=== PATIENT | female | born 1925 | race Caucasian/White ===

== ENCOUNTER 2016-04-06 15:42 | Outpatient (CLI) | payer MEDICARE, BC ==
[~2016-04-06 15:42] MED LIST: ALEVE LIQCAPS PO; ASPIR-LOW81 MG PO; ASPIRIN E.C. 8181 MG PO; ATARAX 25MG25 MG/TAB PO; ATIVAN 1MG T1 MG/TAB PO; ATIVAN0.5 MG PO; BIOTIN1 MG PO; BONIVA1 MG/ML MR; BRILINTA90 MG PO; CALCIUM 600600 MG PO; CALTRATE-600 W600 MG PO; CARDIZEM CD 18180 MG PO; CARDIZEM CD300 MG PO; CLARITIN 1010 MG/TAB PO; CLONAZEPAM; CLOPIDOGREL; CLOPIDOGREL PO; COENZYME Q-1010 MG PO; CYPROHEPTADINE H4 MG PO; DARVOCET A500 51 TAB PO; DETROL; DETROL LA4 PO; DETROL PO; DILTIAZEM180 MG PO; EFFEXOR XR37.5 MG/CA PO; EPIPEN 2-PAK1 MG/ML IM; ESCITALOPRAM PO; FERROUS SULFAT325 MG PO; FISH OIL CONC1000 MG PO; FLONASE NASAL S16 GM NS; FLONASEALLERGY NS; FOLIC ACID; GENTEAL 10 ML10 M1 OU; HCTZ 25MG TAB25 MG PO; HCTZ 25MG25 MG PO; HCTZ12.5TAB PO; HYDROXYZINE10 M1 PO; IMDUR 30MG30 MG/TAB PO; IMDUR 60MG60 MG/TAB PO; KLONOPIN 1MG1 MG PO; KLOR-CON M2020 MEQ PO; LASIX 20MG TABL20 MG PO; LEXAPRO 10MG10 MG PO; LIPITOR40 MG PO; LIVALO PO; LIVALO2 MG PO; MAG-CAPS85 MG; METHADONE HC5 MG/TAB PO; MIRALAX PA17 GM/Dose PO; MS CONTIN 115 MG/TAB PO; NIASPAN 500MG500 MG PO; NITROSTAT0.4 MG/TAB SL; NORCO 325 MG-51 TAB; NORCO 325 MG-51 TAB PO; NORCO 325 MG-7.1 TAB PO; PAMELOR 25MG25 MG PO; PEPCID 20MG TAB20 MG PO; PRAVASTATIN20 MG PO; PREDNISONE20 MG PO; PRESERVISION; PRESERVISION1 SGL PO; PRILOSEC 20MG20 MG PO; PROTONIX 40MG T40 MG PO; REQUIP0.25 MG PO; ROPINAROLE; SENOKOT15 MG/DOSE PO; SINGULAIR PO; SYNTHROID0.075 MG PO; SYNTHROID0.075 MG/T PO; SYNTHROID0.088 MG/T PO; VITAMIN C500 MG PO; ZOCOR40 MG PO; ZYRTEC 10MG10 MG PO; ZYRTEC ALLERGY10 MG PO; [UNRECOGNIZED DRUG - OTHER]; [UNRECOGNIZED DRUG - OTHER]; [UNRECOGNIZED DRUG - REMARK]
[2016-04-06 16:00] VITALS: BP 137/59; PULSE 73; TEMP 97.5
[2016-04-06] MEDS ORDERED: MAG-OX 400400 MG/TAB PO (16:13)
== END 2016-04-06 17:12 | disposition home or self-care (01) ==
LOC: EUO 15:42
DX: M81.0 Age-related osteoporosis without current pathological fracture (principal)
CPT/HCPCS: J3489

== ENCOUNTER 2016-08-19 14:46 | Emergency (ER) | payer MEDICARE, BC ==
[~2016-08-19] VITALS: Ht 154.9 cm; Wt 65.9 kg
[2016-08-19 14:46] VITALS: TEMP 97.1
[~2016-08-19 14:46] MED LIST changes: +MAG-OX 400400 MG/TAB PO
[2016-08-19 15:28] LABS: BASO % 0.5 % (0.0-2.0); EOS # 0.1 (0.0-0.7); EOS % 1.4 % (0-4.0); GRAN # 5.9 (1.4-6.5); GRAN % 66.8 % (42.2-75.2); LYMPH # 1.9 (1.2-3.4); LYMPH % 21.6 % (20.0-51.0); MEAN CELL VOLUME 75 fl (80.0-100.0); MEAN CORPUSCULAR HGB CONC 30 g/dl (33.0-37.0); MEAN PLATELET VOLUME 9.2 fl (7.4-10.4); MONO # 0.8 (0.1-0.6); MONO % 8.5 % (1.7-9.3); PLATELET COUNT 271 K/mm3 (130-400); RED BLOOD COUNT 4.23 M/mm3 (4.10-5.30); REDCELL DISTRIBUTION WIDTH-CV 23.8 % (11.5-14.5); WHITE BLOOD COUNT 8.8 K/mm3 (4.8-10.8)
[2016-08-19 15:29] LABS: HEMATOCRIT 31.9 % (37.0-47.0); HEMOGLOBIN 9.6 g/dl (12.5-16.0); MEAN CORPUSCULAR HEMOGLOBIN 23 pg (27.0-31.0)
[2016-08-19 15:42] LABS: PARTIAL THROMBOPLASTIN TIME 28.4 SECONDS (26.0-37.0)
[2016-08-19 15:44] LABS: ADJUSTED CALCIUM 8.8 mg/dL (8.4-10.2); ALBUMIN 3.9 gm/dL (3.5-5.0); BILIRUBIN,TOTAL 0.5 mg/dL (0.0-1.0); CALCIUM 8.7 mg/dL (8.4-10.2); CREATININE, serum 0.83 mg/dL (0.52-1.25); POTASSIUM 3.2 mmol/L (3.4-5.0); TOTAL PROTEIN 6.8 gm/dL (6.4-8.2)
[2016-08-19 16:24] LABS: PH 7 (5-8); SQUAMOUS EPITHELIAL None Seen /hpf; URINE APPEARANCE Clear; URINE BACTERIA None Seen /hpf; URINE BILIRUBIN Negative (NEGATIVE); URINE BLOOD Negative (NEGATIVE); URINE COLOR Yellow; URINE GLUCOSE Negative (NEGATIVE); URINE KETONE Negative (NEGATIVE); URINE RBC 0-2 /hpf; URINE UROBILINOGEN Negative (NEGATIVE); URINE WBC 0-2 /hpf
[2016-08-19 17:04] LABS: INR 1.2 (0.8-3.0); PROTHROMBIN TIME 13.6 SECONDS (9.7-12.8)
[2016-08-19 17:49] VITALS: BP 177/87; PULSE 82
== END 2016-08-19 17:52 | disposition short-term general hospital (02) ==
LOC: COL.ER 14:46
PROVIDERS: Emergency Medicine
DX: S72.301A Unspecified fracture of shaft of right femur, initial encounter for closed fracture (principal); S72.002A Fracture of unspecified part of neck of left femur, initial encounter for closed fracture; W19.XXXA Unspecified fall, initial encounter; Y92.129 Unspecified place in nursing home as the place of occurrence of the external cause; I25.10 Atherosclerotic heart disease of native coronary artery without angina pectoris; I10 Essential (primary) hypertension
CPT/HCPCS: J1170; J2270; J2405; J7030

== ENCOUNTER 2016-08-29 11:14 | Inpatient (IN) | payer MEDICARE, BC ==
[~2016-08-29] VITALS: Ht 160 cm; Wt 65.1 kg
[~2016-08-29 11:14] MED LIST changes: -ASPIRIN 81M81 MG/TA2 PO; -DITROPAN XL 5MG5 M1 PO; -LIPITOR 10MG10 MG PO; -LOVENOX 4040 MG/0.4 SQ; -OS-CAL 500 + D1 TAB PO; -PRINIVIL10 MG PO; -ROXICODONE 55 MG/TAB PO; -SENOKOT S 50 MG1 TAB PO; -TYLENOL 325MG325 MG PO; -VITAMIN D31000 IU PO; -[UNRECOGNIZED DRUG - OTHER] PO
[2016-08-29 11:59] LABS: INR 1.2 (0.8-3.0); PROTHROMBIN TIME 13.5 SECONDS (9.7-12.8)
[2016-08-29] MEDS ORDERED: VITAMIN D31000 IU PO (11:59)
[2016-08-29] MEDS ORDERED: OS-CAL 500 + D1 TAB PO (11:59)
[2016-08-29] MEDS ORDERED: LOVENOX 4040 MG/0.4 SQ (12:00)
[2016-08-29] MEDS ORDERED: PRINIVIL10 MG PO (12:00)
[2016-08-29] MEDS ORDERED: DITROPAN XL 5MG5 M1 PO (12:01)
[2016-08-29] MEDS ORDERED: SENOKOT S 50 MG1 TAB PO (12:01)
[2016-08-29] MEDS ORDERED: TYLENOL 325MG325 MG PO ×2 (12:02)
[2016-08-29 12:04] LABS: ADD PATHOLOGY DIFF REVIEW NO; HEMOGLOBIN 9.2 g/dl (12.5-16.0); MEAN CELL VOLUME 84 fl (80.0-100.0); MEAN CORPUSCULAR HEMOGLOBIN 27 pg (27.0-31.0); MEAN CORPUSCULAR HGB CONC 32 g/dl (33.0-37.0); MEAN PLATELET VOLUME 10.1 fl (7.4-10.4); PLATELET COUNT 342 K/mm3 (130-400); RED BLOOD COUNT 3.44 M/mm3 (4.10-5.30); REDCELL DISTRIBUTION WIDTH-CV 28.1 % (11.5-14.5); WHITE BLOOD COUNT 9.4 K/mm3 (4.8-10.8)
[2016-08-29] MEDS ORDERED: ROXICODONE 55 MG/TAB PO (12:04)
[2016-08-29 12:06] LABS: ADJUSTED CALCIUM 9.1 mg/dL (8.4-10.2); ALBUMIN 3.3 gm/dL (3.5-5.0); BILIRUBIN,TOTAL 1.3 mg/dL (0.0-1.0); CALCIUM 8.5 mg/dL (8.4-10.2); CREATININE, serum 0.66 mg/dL (0.52-1.25); POTASSIUM 3.8 mmol/L (3.4-5.0); TOTAL PROTEIN 6.5 gm/dL (6.4-8.2)
[2016-08-29 13:23] LABS: PH 7 (5-8); SQUAMOUS EPITHELIAL None Seen /hpf; URINE APPEARANCE Clear; URINE BACTERIA Rare /hpf; URINE BILIRUBIN Negative (NEGATIVE); URINE BLOOD 1+ (NEGATIVE); URINE COLOR Yellow; URINE GLUCOSE Negative (NEGATIVE); URINE KETONE Negative (NEGATIVE); URINE UROBILINOGEN Negative (NEGATIVE)
[2016-08-29 13:32] LABS: BAND 9 % (0-10); BASOPHIL 1 % (0-2); EOSINOPHIL 2 % (0-4); NEUTROPHILS 62 % (42.0-75.2); PLATELET ESTIMATE NORMAL (NORMAL); TOTAL CELLS COUNTED 100
[2016-08-29 15:47] VITALS: BP 158/70; PULSE 86; TEMP 97.7
[2016-08-29] MEDS ORDERED: [UNRECOGNIZED DRUG - OTHER] PO (16:12)
[2016-08-29 19:50] VITALS: BP 171/72; PULSE 89; TEMP 97.7
[2016-08-30] VITALS (7 sets, daily range): BP systolic 122–166; BP diastolic 42–83; PULSE 66–92; TEMP 97.2–98.6
[2016-08-30 13:40] LABS: MEAN CELL VOLUME 85 fl (80.0-100.0); MEAN CORPUSCULAR HGB CONC 31 g/dl (33.0-37.0); MEAN PLATELET VOLUME 9.7 fl (7.4-10.4); PLATELET COUNT 399 K/mm3 (130-400); RED BLOOD COUNT 3.66 M/mm3 (4.10-5.30); REDCELL DISTRIBUTION WIDTH-CV 27.9 % (11.5-14.5); WHITE BLOOD COUNT 13.2 K/mm3 (4.8-10.8)
[2016-08-30 13:45] LABS: HEMOGLOBIN 9.6 g/dl (12.5-16.0); MEAN CORPUSCULAR HEMOGLOBIN 26 pg (27.0-31.0)
[2016-08-30 14:00] LABS: CALCIUM 8.8 mg/dL (8.4-10.2); CREATININE, serum 0.73 mg/dL (0.52-1.25); POTASSIUM 3.6 mmol/L (3.4-5.0)
[2016-08-30 14:22] LABS: ANISOCYTOSIS 4+; BAND 8 % (0-10); EOSINOPHIL 1 % (0-4); METAMYELOCYTE 4 % (0-0); MYELOCYTE 4 % (0-0); NEUTROPHILS 69 % (42.0-75.2); PLATELET ESTIMATE INCREASED (NORMAL); TOTAL CELLS COUNTED 100
[2016-08-30 14:23] LABS: ADD PATHOLOGY DIFF REVIEW YES; HYPOCHROMIA 1+; OVALOCYTES 1+; TEAR DROP CELLS 1+
[2016-08-31 04:29] VITALS: BP 164/77; PULSE 77; TEMP 98.1
[2016-08-31 08:08] VITALS: BP 129/63; PULSE 76; TEMP 98.1
[2016-08-31 08:57] LABS: MEAN CELL VOLUME 85 fl (80.0-100.0); MEAN CORPUSCULAR HGB CONC 32 g/dl (33.0-37.0); MEAN PLATELET VOLUME 10.1 fl (7.4-10.4); PLATELET COUNT 429 K/mm3 (130-400); RED BLOOD COUNT 3.63 M/mm3 (4.10-5.30); REDCELL DISTRIBUTION WIDTH-CV 27.8 % (11.5-14.5); WHITE BLOOD COUNT 10.1 K/mm3 (4.8-10.8)
[2016-08-31 09:01] LABS: HEMATOCRIT 30.9 % (37.0-47.0); HEMOGLOBIN 9.8 g/dl (12.5-16.0); MEAN CORPUSCULAR HEMOGLOBIN 27 pg (27.0-31.0)
[2016-08-31 09:02] LABS: ADD PATHOLOGY DIFF REVIEW NO
[2016-08-31 09:16] LABS: CALCIUM 8.6 mg/dL (8.4-10.2); CREATININE, serum 0.67 mg/dL (0.52-1.25); POTASSIUM 3.3 mmol/L (3.4-5.0)
[2016-08-31 09:52] LABS: BAND 3 % (0-10); EOSINOPHIL 1 % (0-4); NEUTROPHILS 75 % (42.0-75.2); PLATELET ESTIMATE INCREASED (NORMAL); TOTAL CELLS COUNTED 100
[2016-08-31 09:53] LABS: HYPOCHROMIA 1+
[2016-08-31 12:08] VITALS: BP 121/62; PULSE 74; TEMP 97.5
[2016-08-31 15:57] VITALS: BP 132/54; PULSE 72; TEMP 98
[2016-08-31 22:15] VITALS: BP 144/64; PULSE 85; TEMP 98.2
[2016-09-01 08:02] LABS: CALCIUM 8.5 mg/dL (8.4-10.2); CREATININE, serum 0.7 mg/dL (0.52-1.25); MAGNESIUM 1.9 mg/dL (1.6-2.3); POTASSIUM 3.8 mmol/L (3.4-5.0)
[2016-09-01 08:11] VITALS: BP 114/50; PULSE 69; TEMP 98.1
[2016-09-01 08:48] LABS: PATHOLOGY DIFF REVIEW OK +
[2016-09-01] MEDS ORDERED: LIPITOR 10MG10 MG PO (08:49)
[2016-09-01] MEDS ORDERED: ASPIRIN 81M81 MG/TA2 PO (08:50)
[2016-09-01 11:17] VITALS: BP 114/50; PULSE 69; TEMP 98.1
== END 2016-09-01 12:06 | DRG 65 ==
LOC: COL.ER 11:14 → MEDICAL 13:35 → EDBEDREQ 13:47 → MEDICAL 08-30 12:00
PROVIDERS: Emergency Medicine; Physician Assistant
DX: I63.9 Cerebral infarction, unspecified (principal); E87.1 Hypo-osmolality and hyponatremia; E86.1 Hypovolemia; D64.9 Anemia, unspecified; J44.9 Chronic obstructive pulmonary disease, unspecified; Z96.643 Presence of artificial hip joint, bilateral; E03.9 Hypothyroidism, unspecified; I10 Essential (primary) hypertension; G25.81 Restless legs syndrome; Z87.891 Personal history of nicotine dependence; I69.992 Facial weakness following unspecified cerebrovascular disease; Z88.0 Allergy status to penicillin
CPT/HCPCS: 99232-AI; 99239; G0378; G8978-GP; G8979-GP; G8987-GO; G8988-GO; G8996-GN; G8997-GN; J1650; J7030; J7040

== ENCOUNTER → 2016-08-29 | Outpatient (REF) ==
[~2016-08-29] MED LIST changes: +ASPIRIN 81M81 MG/TA2 PO; +DITROPAN XL 5MG5 M1 PO; +LIPITOR 10MG10 MG PO; +LOVENOX 4040 MG/0.4 SQ; +OS-CAL 500 + D1 TAB PO; +PRINIVIL10 MG PO; +ROXICODONE 55 MG/TAB PO; +SENOKOT S 50 MG1 TAB PO; +TYLENOL 325MG325 MG PO; +VITAMIN D31000 IU PO; +[UNRECOGNIZED DRUG - OTHER] PO
[2016-08-29 09:24] LABS: CREATININE, serum 0.58 mg/dL (0.52-1.25); POTASSIUM 4.2 mmol/L (3.4-5.0)
== END ==
LOC: ZCOL.LAB 09:05
PROVIDERS: Internal Medicine
DX: Z01.89 Encounter for other specified special examinations (principal)

== ENCOUNTER → 2016-09-03 | Outpatient (REF) ==
[~2016-09-03] MED LIST changes: +ASPIRIN 81M81 MG/TA2 PO; +DITROPAN XL 5MG5 M1 PO; +LIPITOR 10MG10 MG PO; +LOVENOX 4040 MG/0.4 SQ; +OS-CAL 500 + D1 TAB PO; +PRINIVIL10 MG PO; +ROXICODONE 55 MG/TAB PO; +SENOKOT S 50 MG1 TAB PO; +TYLENOL 325MG325 MG PO; +VITAMIN D31000 IU PO; +[UNRECOGNIZED DRUG - OTHER] PO
[2016-09-03 16:59] LABS: MEAN CELL VOLUME 89 fl (80.0-100.0); MEAN CORPUSCULAR HGB CONC 30 g/dl (33.0-37.0); MEAN PLATELET VOLUME 9.8 fl (7.4-10.4); PLATELET COUNT 487 K/mm3 (130-400); RED BLOOD COUNT 3.52 M/mm3 (4.10-5.30); WHITE BLOOD COUNT 8.7 K/mm3 (4.8-10.8)
[2016-09-03 17:08] LABS: CALCIUM 8.6 mg/dL (8.4-10.2); CREATININE, serum 0.84 mg/dL (0.52-1.25); MAGNESIUM 1.8 mg/dL (1.6-2.3); POTASSIUM 4.1 mmol/L (3.4-5.0)
[2016-09-03 17:10] LABS: HEMATOCRIT 31.2 % (37.0-47.0); HEMOGLOBIN 9.5 g/dl (12.5-16.0); MEAN CORPUSCULAR HEMOGLOBIN 27 pg (27.0-31.0)
[2016-09-03 17:39] LABS: ADD PATHOLOGY DIFF REVIEW YES; ANISOCYTOSIS 2+; BAND 6 % (0-10); BASOPHIL 1 % (0-2); EOSINOPHIL 2 % (0-4); METAMYELOCYTE 1 % (0-0); MYELOCYTE 3 % (0-0); NEUTROPHILS 65 % (42.0-75.2); PLATELET ESTIMATE INCREASED (NORMAL); TOTAL CELLS COUNTED 100
[2016-09-03 17:40] LABS: HYPOCHROMIA 1+; POIKILOCYTOSIS 1+
[2016-09-06 09:14] LABS: PATHOLOGY DIFF REVIEW OK
== END ==
LOC: ZCOL.LAB 16:55
PROVIDERS: Internal Medicine
DX: Z01.89 Encounter for other specified special examinations (principal)

== ENCOUNTER → 2016-09-10 | Outpatient (CLI) | payer MEDICARE, BC ==
[2016-09-10 17:20] LABS: BASO # 0.1 (0.0-0.2); BASO % 0.8 % (0.0-2.0); EOS # 0.2 (0.0-0.7); GRAN # 4.3 (1.4-6.5); GRAN % 58.8 % (42.2-75.2); LYMPH # 1.7 (1.2-3.4); LYMPH % 23.5 % (20.0-51.0); MEAN CELL VOLUME 88 fl (80.0-100.0); MEAN CORPUSCULAR HGB CONC 31 g/dl (33.0-37.0); MEAN PLATELET VOLUME 9.8 fl (7.4-10.4); MONO # 0.9 (0.1-0.6); MONO % 12.8 % (1.7-9.3); PLATELET COUNT 408 K/mm3 (130-400); REDCELL DISTRIBUTION WIDTH-CV 24.9 % (11.5-14.5); WHITE BLOOD COUNT 7.4 K/mm3 (4.8-10.8)
[2016-09-10 17:21] LABS: HEMATOCRIT 33.4 % (37.0-47.0); HEMOGLOBIN 10.4 g/dl (12.5-16.0); MEAN CORPUSCULAR HEMOGLOBIN 27 pg (27.0-31.0)
[2016-09-10 17:27] LABS: CALCIUM 9.2 mg/dL (8.4-10.2); CREATININE, serum 0.79 mg/dL (0.52-1.25); MAGNESIUM 1.7 mg/dL (1.6-2.3); POTASSIUM 4.3 mmol/L (3.4-5.0)
== END ==
LOC: ZCOL.LAB 17:11
PROVIDERS: Internal Medicine
DX: I63.9 Cerebral infarction, unspecified (principal); E87.1 Hypo-osmolality and hyponatremia; D72.829 Elevated white blood cell count, unspecified; I10 Essential (primary) hypertension; E83.41 Hypermagnesemia

== ENCOUNTER → 2016-10-04 | Outpatient (CLI) | payer MEDICARE, BC ==
[2016-10-04 15:41] LABS: BASO # 0.1 (0.0-0.2); BASO % 0.9 % (0.0-2.0); EOS # 0.2 (0.0-0.7); EOS % 3.4 % (0-4.0); GRAN # 3.5 (1.4-6.5); GRAN % 54.4 % (42.2-75.2); HEMATOCRIT 37.4 % (37.0-47.0); LYMPH % 30.9 % (20.0-51.0); MEAN CELL VOLUME 89 fl (80.0-100.0); MEAN CORPUSCULAR HEMOGLOBIN 28 pg (27.0-31.0); MEAN CORPUSCULAR HGB CONC 31 g/dl (33.0-37.0); MEAN PLATELET VOLUME 9.9 fl (7.4-10.4); MONO # 0.6 (0.1-0.6); MONO % 9.9 % (1.7-9.3); PLATELET COUNT 303 K/mm3 (130-400); REDCELL DISTRIBUTION WIDTH-CV 21.5 % (11.5-14.5); WHITE BLOOD COUNT 6.5 K/mm3 (4.8-10.8)
[2016-10-04 15:43] LABS: HEMOGLOBIN 11.7 g/dl (12.5-16.0)
[2016-10-04 15:52] LABS: CALCIUM 9.3 mg/dL (8.4-10.2); CREATININE, serum 0.78 mg/dL (0.52-1.25); POTASSIUM 3.8 mmol/L (3.4-5.0)
== END ==
LOC: ZCOL.LAB 15:36
PROVIDERS: Nurse Practitioner Family
DX: D50.0 Iron deficiency anemia secondary to blood loss (chronic) (principal); R07.89 Other chest pain

== ENCOUNTER 2017-04-18 04:30 | Observation (INO) | payer MEDICARE, BC ==
[~2017-04-18] VITALS: Ht 154.9 cm; Wt 60.0 kg
[~2017-04-18 04:30] MED LIST changes: +FERROUSAL325 MG PO; +MIRALAX119G PO; +MOBIC 7.5MG7.5 MG PO
[2017-04-18 04:52] LABS: BASO % 0.4 % (0.0-2.0); EOS # 0.3 (0.0-0.7); EOS % 3.9 % (0-4.0); GRAN # 3.9 (1.4-6.5); GRAN % 58.6 % (42.2-75.2); HEMATOCRIT 40.9 % (37.0-47.0); HEMOGLOBIN 13.8 g/dl (12.5-16.0); LYMPH # 1.8 (1.2-3.4); LYMPH % 27.3 % (20.0-51.0); MEAN CELL VOLUME 94 fl (80.0-100.0); MEAN CORPUSCULAR HEMOGLOBIN 32 pg (27.0-31.0); MEAN CORPUSCULAR HGB CONC 34 g/dl (33.0-37.0); MEAN PLATELET VOLUME 9.5 fl (7.4-10.4); MONO # 0.6 (0.1-0.6); MONO % 9.5 % (1.7-9.3); PLATELET COUNT 187 K/mm3 (130-400); RED BLOOD COUNT 4.36 M/mm3 (4.10-5.30); REDCELL DISTRIBUTION WIDTH-CV 13.5 % (11.5-14.5)
[2017-04-18 05:04] LABS: ALANINE AMINOTRANSFERASE 23 U/L (9-52); ALBUMIN 3.9 gm/dL (3.5-5.0); ALKALINE PHOSPHATASE 220 U/L (50-136); ANION GAP 8 mmol/L (7-16); AST,SGOT 21 U/L (15-37); BILIRUBIN,TOTAL 0.3 mg/dL (0.0-1.0); BLOOD UREA NITROGEN 19 mg/dL (7-17); CALCIUM 8.8 mg/dL (8.4-10.2); CARBON DIOXIDE 25 mmol/L (22-30); CHLORIDE 103 mmol/L (98-107); CREATININE, serum 0.74 mg/dL (0.52-1.25); GLUCOSE 122 mg/dL (74-106); LIPASE 49 U/L (23-300); MAGNESIUM 1.7 mg/dL (1.6-2.3); PHOSPHOROUS 3.2 mg/dL (2.5-4.5); SODIUM 136 mmol/L (137-145); TOTAL PROTEIN 6.7 gm/dL (6.4-8.2)
[2017-04-18 05:07] LABS: POTASSIUM 2.9 mmol/L (3.4-5.0)
[2017-04-18 05:17] LABS: TROPONIN-I < 0.012 ng/mL (0.000-0.034)
[2017-04-18 05:20] LABS: COLLECTION METHOD CLEAN CATCH
[2017-04-18 05:26] LABS: PH 7 (5-8); SQUAMOUS EPITHELIAL None Seen /hpf; URINE APPEARANCE Clear; URINE BACTERIA None Seen /hpf; URINE BILIRUBIN Negative (NEGATIVE); URINE BLOOD Negative (NEGATIVE); URINE COLOR Straw; URINE GLUCOSE Negative (NEGATIVE); URINE KETONE Negative (NEGATIVE); URINE LEUKOCYTE ESTERASE Negative (NEGATIVE); URINE NITRATE Negative (NEGATIVE); URINE PROTEIN(semi-quant) Negative (NEGATIVE); URINE RBC 0-2 /hpf; URINE UROBILINOGEN Negative (NEGATIVE)
[2017-04-18 09:15] VITALS: BP 177/75; PULSE 92; TEMP 97.5
[2017-04-18 11:15] VITALS: BP 147/93; PULSE 83; TEMP 98
== END 2017-04-18 16:29 | disposition home or self-care (01) ==
LOC: COL.ER 04:30 → MEDICAL 06:53
PROVIDERS: Emergency Medicine
DX: R07.9 Chest pain, unspecified (principal); I44.0 Atrioventricular block, first degree; I49.1 Atrial premature depolarization; I25.10 Atherosclerotic heart disease of native coronary artery without angina pectoris; Z95.5 Presence of coronary angioplasty implant and graft; I34.0 Nonrheumatic mitral (valve) insufficiency; I10 Essential (primary) hypertension; S22.32XA Fracture of one rib, left side, initial encounter for closed fracture; Z79.82 Long term (current) use of aspirin; Z87.891 Personal history of nicotine dependence; Z96.651 Presence of right artificial knee joint; G25.81 Restless legs syndrome; Z88.0 Allergy status to penicillin; Z88.8 Allergy status to other drugs, medicaments and biological substances; Z88.1 Allergy status to other antibiotic agents; Z91.041 Radiographic dye allergy status; Z91.040 Latex allergy status; Z88.9 Allergy status to unspecified drugs, medicaments and biological substances; E87.6 Hypokalemia; K21.9 Gastro-esophageal reflux disease without esophagitis; K27.9 Peptic ulcer, site unspecified, unspecified as acute or chronic, without hemorrhage or perforation; F32.9 Major depressive disorder, single episode, unspecified; G89.29 Other chronic pain; E03.9 Hypothyroidism, unspecified
CPT/HCPCS: G0378; J0360; J3480; J7030

== ENCOUNTER 2017-05-25 09:04 | Emergency (ER) | payer MEDICARE, BC ==
[~2017-05-25] VITALS: Ht 152.4 cm; Wt 59.1 kg
[2017-05-25 09:31] LABS: BASO % 0.6 % (0.0-2.0); EOS # 0.2 (0.0-0.7); EOS % 3.1 % (0-4.0); GRAN # 4.3 (1.4-6.5); GRAN % 62.3 % (42.2-75.2); HEMATOCRIT 40.6 % (37.0-47.0); HEMOGLOBIN 13.3 g/dl (12.5-16.0); LYMPH # 1.9 (1.2-3.4); LYMPH % 26.9 % (20.0-51.0); MEAN CELL VOLUME 96 fl (80.0-100.0); MEAN CORPUSCULAR HEMOGLOBIN 32 pg (27.0-31.0); MEAN CORPUSCULAR HGB CONC 33 g/dl (33.0-37.0); MEAN PLATELET VOLUME 9.6 fl (7.4-10.4); MONO # 0.4 (0.1-0.6); MONO % 6.4 % (1.7-9.3); PLATELET COUNT 209 K/mm3 (130-400); RED BLOOD COUNT 4.22 M/mm3 (4.10-5.30); REDCELL DISTRIBUTION WIDTH-CV 15.1 % (11.5-14.5)
[2017-05-25 09:43] LABS: ALANINE AMINOTRANSFERASE 28 U/L (9-52); ALBUMIN 3.8 gm/dL (3.5-5.0); ALKALINE PHOSPHATASE 149 U/L (50-136); ANION GAP 13 mmol/L (7-16); AST,SGOT 22 U/L (15-37); BILIRUBIN,TOTAL 0.3 mg/dL (0.0-1.0); BLOOD UREA NITROGEN 21 mg/dL (7-17); CARBON DIOXIDE 25 mmol/L (22-30); CHLORIDE 105 mmol/L (98-107); CREATININE, serum 0.79 mg/dL (0.52-1.25); GLUCOSE 117 mg/dL (74-106); POTASSIUM 3.9 mmol/L (3.4-5.0); SODIUM 142 mmol/L (137-145); TOTAL PROTEIN 6.4 gm/dL (6.4-8.2)
[2017-05-25 09:55] LABS: TROPONIN-I < 0.012 ng/mL (0.000-0.034)
[2017-05-25 11:31] VITALS: BP 129/81; PULSE 81
== END 2017-05-25 11:51 | disposition home or self-care (01) ==
LOC: COL.ER 09:04
PROVIDERS: Emergency Medicine
DX: R07.89 Other chest pain (principal); I10 Essential (primary) hypertension; I25.10 Atherosclerotic heart disease of native coronary artery without angina pectoris; J44.9 Chronic obstructive pulmonary disease, unspecified; K21.9 Gastro-esophageal reflux disease without esophagitis; Z87.81 Personal history of (healed) traumatic fracture; Z87.11 Personal history of peptic ulcer disease; Z87.891 Personal history of nicotine dependence; Z89.512 Acquired absence of left leg below knee; Z89.511 Acquired absence of right leg below knee; Z79.82 Long term (current) use of aspirin; Z79.51 Long term (current) use of inhaled steroids
CPT/HCPCS: J1885; J7030